=== PATIENT | male | born 1975 | race Two or more races ===

== ENCOUNTER 2024-07-26 16:04 | Emergency (ER) | payer BC, OTHER ==
[~2024-07-26] VITALS: Ht 172.7 cm; Wt 88.7 kg
--- NOTE | 2024-07-26 16:39 | ED.PDOC ---
Eye-HPI HPI Comments 48Y M presents to ED for chief complaint sore throat x2days. Additional symptom includes ear pain. Pt denies chest pain, SOB, headache, and fever. Chief Complaint: Sore Throat Time Seen by MD: 16:32 Reviewed Notes: Medications, Allergies Information Source: Patient Mode of Arrival: Ambulatory Timing: Days Duration: Since onset Quality: Pain, Red, White Lids: Normal Cornea: Normal Pupils: Normal EOM: Normal Oropharynx: Red (rt tonsil), Exudate (rt tonsil) Onset: Spontaneous Throat Exposed to: None History of: None Modifying factors: Nothing Associated signs and symptoms: Ear Pain, Other Past Medical History PAST MEDICAL HISTORY: Denies Surgical History: Denies all surgeries Family History Family History: Unknown Social History Smoker: Non-Smoker Alcohol: Denies ETOH Use Drugs: Denies Drug Use Lives In: Home Constitutional: denies: chills, diaphoresis, fatigue, fever, malaise, sweats, weakness, others EENTM: reports: ear pain, throat pain; denies: blurred vision, double vision, ear bleeding, ear discharge, ear drainage, ear ringing, eye pain, eye redness, hearing loss, mouth pain, mouth swelling, nasal discharge, nose bleeding, nose congestion, nose pain, photophobia, tearing, throat swelling, voice changes, others Respiratory: denies: cough, hemoptysis, orthopnea, SOB at rest, shortness of breath, SOB with excertion, stridor, wheezing, others Cardiovascular: denies: chest pain, dizzy spells, diaphoresis, Dyspnea on exertion, edema, irregular heart beat, left arm pain, lightheadedness, palpitations, PND, syncope, others Gastrointestinal: denies: abdomen distended, abdominal pain, blood streaked bowels, constipated, diarrhea, dysphagia, difficulty swallowing, hematemesis, melena, nausea, poor appetite, poor fluid intake, rectal bleeding, rectal pain, vomiting, others Genitourinary: denies: burning, dysuria, flank pain, frequency, hematuria, incontinence, penile discharge, penile sore, pain, testicle pain, testicle swelling, urgency, others Neurological: denies: dizziness, fainting, headache, left sided numbness, left sided weakness, numbness, paresthesia, pre-existing deficit, right sided num bness, right sided weakness, seizure, speech problems, tingling, tremors, weakness, others Musculoskeletal: denies: back pain, gout, joint pain, joint swelling, muscle pain, muscle stiffness, neck pain, others Integumetry: denies: bruises, change in color, change in hair/nails, dryness, laceration, lesions, lumps, rash, wounds, others Allergic/Immunocompromised: denies: Difficulty Healing, Frequent Infections, Hives, Itching, others Hematologic/Lymphatic: denies: anemia, blood clots, easy bleeding, easy bruising, swollen glands, others Endocrine: denies: excessive hunger, excessive sweating, excessive thirst, excessive urination, flushing, intolerance to cold, intolerance to heat, unexplained weight gain, unexplained weight loss, others Psychiatric: denies: anxiety, bipolar disorder, depression, hopeless, panic disorder, schizophrenia, sleepless, suicidal, others All Other Systems: Reviewed and Negative Physical Exam General Appearance: No Apparent Distress, Normal HEENT: TMs Normal, Tonsillar Exudate (right), Other (bilateral tonsils mildly enlarged, rt tonsil with erythema and white exudate) Neck: Full Range of Motion, Non-Tender, Normal, Normal Inspection Respiratory: Chest Non-Tender, Lungs Clear, No Accessory Muscle Use, No Respiratory Distress, Normal Breath Sounds Cardiovascular: No Edema, No JVD, No Murmur, No Gallop, Normal Peripheral Pulses, Regular Rate/Rhythm Breast Exam: Deferred Gastrointestinal: No Organomegaly, Non Tender, No Pulsatile Mass, Normal Bowel Sounds, Soft Genitalia: Deferred Pelvic: Deferred Rectal: Deferred Extremities: No calf tenderness, Normal capillary refill, Normal inspection, N ormal range of motion, Non-tender, No pedal edema Musculoskeletal : Apperance: Normal Neurologic: Alert, third mate II-XII nml as Tested, No Motor Deficits, Normal Affect, Normal Mood, No Sensory Deficits Cerebellar Function: Normal Reflexes: Normal Skin: Dry, Normal Color, Warm Lymphatic: Other Was a procedure done? Was a procedure done?: No EENT DIFF Eye: N/A Ear: Otitis Externa, Otitis Media, Dental, Pharyngitis Nose: N/A Mouth: N/A Sore Throat: Herpangina, Herpetic Stomatitis, Dony's Angina, Peritonsillar Abscess, Peritonsillar Cellulitis, Pharyngitis, Streptococcal, Viral Pharyngitis, URI X-Ray, Labs, Meds, VS Vital Signs Date Time Temp Pulse Resp B/P (MAP) Pulse Ox O2 Delivery O2 Flow Rate FiO2 07/26/24 16:24 100.0 110 18 144/98 (113) 98 Time of 1ST Reevaluation: 17:02 Reevaluation 1ST: Unchanged Time of 2ND Reevaluation: 16:42 Reevaluation 2ND: Improved Patient Education/Counseling: Diagnosis, Treatment, Prognosis, Need For Follow Up Family Education/Counseling: No Family Present Additional Information I discussed treatment and results with medical personnel. PT DOES NOT HAVE AIRWAY OBSTRUCTION, PERITONSILLAR ABSCESS, HOARSENESS Departure 1 Departure Time of Disposition: 16:42 Impression: Primary Impression: Strep tonsillitis Disposition: 01 HOME / SELF CARE / HOMELESS Condition: Good Discharged With: Self Critical Care Note Critical Care Time?: No Stability Stability form required: No Heart Score Heart Score: Heart Score Response (Comments) Value History N/A 0 EKG N/A 0 Age N/A 0 Risk Factors N/A 0 Troponin N/A 0 Total 0 I personally scribed for GURINDER VASQUEZ MD ([email or web address]) on 07/26/24 at 16:39. Electronically submitted by Farzana Dominguez ([employer]). I personally scribed for GURINDER VASQUEZ MD ([email or web address]) on 07/26/24 at 16:41. Electronically submitted by Farzana Dominguez ([employer]). GURINDER VASQUEZ MD Jul 26, 2024 16:39
[2024-07-26 17:01] VITALS: BP 128/77; PULSE 108
[2024-07-26 17:05] VITALS: RESP 16; O2SAT 97
[2024-07-26 17:14] VITALS: TEMP 101.2
[2024-07-26] MEDS: ACETAMINOPHEN 500 MG TAB or CAP PO ONE (17:14)
[2024-07-26] MEDS: PENICILLIN G BENZ 1,200,000 UNITS/2 ML SYRG IM ONE (17:15)
== END 2024-07-26 17:31 | disposition home or self-care (01) ==
LOC: ER 16:04
DX: J03.00 Acute streptococcal tonsillitis, unspecified (principal); H92.09 Otalgia, unspecified ear
CPT/HCPCS: 96372; 99283; J0561